=== PATIENT | female | born 1940 | race Caucasian/White ===

== ENCOUNTER 2018-04-13 03:25 | Emergency (ER) | payer OTHER ==
[2018-04-13 04:18] LABS: Urine RBC TNTC /HPF (NONE SEEN)
[2018-04-13 04:29] LABS: Urine Bacteria <20 /HPF (<20); Urine Culture Reflex Order NOT NEEDED
[2018-04-13 04:30] LABS: Urine Blood 3+ (NEG); Urine Glucose TRACE (NEG); Urine Protein 3+ (NEG); Urine Specific Gravity 1.015 (1.005-1.030); Urine pH >8.5 (5.0-7.0)
[2018-04-13 05:12] LABS: Absolute Lymphocytes (CBC) 1.5 K/uL (0.7-4.9); Absolute Monocytes 0.7 K/uL (0.1-1.3); Absolute Neutrophil 9.1 K/uL (1.8-8.0); Basophils % 0.6 % (0-1.3); Eosinophils % 1.1 % (0-4.4); Lymphocytes % 12.7 % (15.3-44.8); MCH 29.5 pg (27.0-35.0); MCV 88.1 fL (80-100); MPV 7.4 fL (7.6-11.3); Monocytes % 6.3 % (3.3-12.3); RBC Red Blood Cell Count 4.88 M/uL (3.86-4.86)
[2018-04-13 05:22] LABS: Protime INR 1.06
[2018-04-13 05:36] LABS: Albumin 4.1 g/dL (3.4-5.0); Bilirubin Direct 0.2 mg/dL (0-0.2); Bilirubin Total 0.9 mg/dL (0.2-1.0); Potassium 3.8 mmol/L (3.5-5.1); Protein, Total 7.5 g/dL (6.4-8.2)
--- NOTE | 2018-04-13 06:03 | ER ---
Nurse's Notes [facility] Name: Marimar Jansen Age: 77 yrs Sex: Female : 1940 Arrival Date: 04/13/2018 Time: 03:30 Bed 6 Private MD: Morena Melchor F Diagnosis: Hematuria, unspecified;Urinary tract infection, site not specified Presentation: 04/13 03:43 Presenting complaint: Patient states: Pt reports she started having bloody urine since ea 0000 this AM. 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 Denies Fever and burning with urination. Transition of care: patient was not received from another setting of care. Onset of symptoms was April 13, 2018. Risk Assessment: Do you want to hurt yourself or someone else? Patient reports no desire to harm self or others. Initial Sepsis Screen: Does the patient meet any 2 criteria? No. Patient's initial sepsis screen is negative. Does the patient have a suspected source of infection? Yes: Dysuria/Frequency/Urgency/UTI. Care prior to arrival: None. 03:43 Method Of Arrival: Ambulatory ea 03:43 Acuity: KAILA 4 ea Triage Assessment: 03:50 General: Appears in no apparent distress. Behavior is calm, cooperative, appropriate ea for age. Pain: Denies pain. Neuro: Level of Consciousness is awake, alert, obeys commands, Oriented to person, place, time, situation. Cardiovascular: Heart tones S1 S2 present Patient's skin is warm and dry. Respiratory: Airway is patent Respiratory effort is even, unlabored, Respiratory pattern is regular, symmetrical. : Parent/caregiver report the patient having bloody urine. Derm: Skin is pink, warm \T\ dry. Musculoskeletal: Circulation, motion, and sensation intact. Historical: - Home Meds: 04:32 atenolol 50 mg Oral tab 1 tab once daily [Active]; Myrbetriq 50 mg oral Tb24 1 tab once ea daily [Active]; Calcium Citrate Oral twice a day [Active]; glucosamine-chondroitin Oral daily [Active]; biotin 1,000 mcg oral chew daily [Active]; aspirin 81 mg Oral chew 1 tab once daily [Active]; magnesium oxide 400 mg Oral tab daily [Active]; pravastatin 40 mg Oral tab 1 tab once daily [Active]; losartan 100 mg Oral tab 1 tab once daily [Active]; latanoprost 0.005 % ophthalmic drop 1 drop once daily [Active]; - PMHx: 04:32 Hypertension; Hyperlipidemia; ea - PSHx: 04:32 LUMPECTOMY RIGHT BREAST; BACK SX; Tubal ligation; RIGHT FOOT SX; Bladder suspension; ea bunion surgery; - Immunization history:: Adult Immunizations up to date. - Social history:: Smoking status: Patient/guardian denies using tobacco. - Ebola Screening: : No symptoms or risks identified at this time. Screenin:51 Abuse screen: Denies threats or abuse. Nutritional screening: No deficits noted. ea Tuberculosis screening: No symptoms or risk factors identified. Fall Risk None identified. Assessment: 03:52 Reassessment: see triage assessment. ea 04:39 Reassessment: Patient appears in no apparent distress at this time. Patient and/or tl2 family updated on plan of care and expected duration. Pain level reassessed. Patient is alert, oriented x 3, equal unlabored respirations, skin warm/dry/pink. 05:38 Reassessment: Patient and/or family updated on plan of care and expected duration. Pain ea level reassessed. Patient is alert, oriented x 3, equal unlabored respirations, skin warm/dry/pink. 06:23 Reassessment: Patient and/or family updated on plan of care and expected duration. Pain ea level reassessed. Patient is alert, oriented x 3, equal unlabored respirations, skin warm/dry/pink. Discharge instructions given to patient, verbalized the understanding of instruction. 06:28 Reassessment: Patient appears in no apparent distress at this time. Patient and/or tl2 family updated on plan of care and expected duration. Pain level reassessed. Patient is alert, oriented x 3, equal unlabored respirations, skin warm/dry/pink. Pt verbalized understanding of discharge instructions, need for follow up and prescription usage. Vital Signs: 03:49 BP 193 / 99; Pulse 64; Resp 18; Temp 98; Pulse Ox 97% on R/A; Weight 68.04 kg; Height 5 ea ft. 2 in. (157.48 cm); Pain 0/10; 04:39 BP 183 / 84; Pulse 63; Resp 18; Pulse Ox 95% on R/A; tl2 05:30 BP 164 / 79; Pulse 65; Resp 18; Pulse Ox 98% on R/A; tl2 06:11 BP 167 / 74; Pulse 59; Resp 18; Pulse Ox 98% on R/A; tl2 03:49 Body Mass Index 27.44 (68.04 kg, 157.48 cm) ED Course: 03:30 Patient arrived in ED. am2 03:30 Morena Melchor MD is Private Physician. am2 03:35 Randy Lawson MD is Attending Physician. tw4 03:43 Sheila Dickens, RN is Primary Nurse. ea 03:46 UA MICROSCOPIC Sent. ds4 03:48 Triage completed. ea 03:51 Patient has correct armband on for positive identification. Bed in low position. Call ea light in reach. 03:52 Arm band placed on right wrist. Patient placed in an exam room, on a stretcher, on ea pulse oximetry. 04:39 Inserted saline lock: 20 gauge in left antecubital area, using aseptic technique. Blood tl2 collected. placed by adolfo Lowery. 04:40 Basic Metabolic Panel Sent. ds4 04:40 Ptt, Activated Sent. ds4 04:40 PT-INR Sent. ds4 04:40 Basic Metabolic Panel Sent. ds4 04:40 CBC with Diff Sent. ds4 04:40 Creatinine for Radiology Sent. ds4 04:40 Hepatic Function Sent. ds4 04:40 Lipase Sent. ds4 04:41 Urine Dipstick--Ancillary (enter results) Sent. ds4 06:02 Morena Melchor MD is Referral Physician. tw4 06:23 No provider procedures requiring assistance completed. IV discontinued, intact, ea bleeding controlled, No redness/swelling at site. Pressure dressing applied. Administered Medications: No medications were administered Outcome: 06:03 Discharge ordered by . tw4 06:24 Discharged to home ambulatory. ea 06:24 Condition: improved 06:24 Discharge instructions given to patient, Instructed on discharge instructions, follow up and referral plans. medication usage, Demonstrated understanding of instructions, follow-up care, medications, Prescriptions given X 1. 06:28 Patient left the ED. tl2 Signatures: Sebastián Bassett ds4 Billie Blanco RN RN tl2 Lyric Swenson am2 Dickens, Sheila, RN RN ea Renny, Randy, MD MD tw4
--- NOTE | 2018-04-13 06:03 | EDPHYS ---
Physician Documentation [facility] Name: Marimar Jansen Age: 77 yrs Sex: Female : 1940 Arrival Date: 04/13/2018 Time: 03:30 Bed 6 Private MD: Morena Melchor F ED Physician Randy Lawson HPI: 04/13 05:53 This 77 yrs old Female presents to ER via Ambulatory with complaints of tw4 Urinary Problem - bleeding. 05:53 The patient presents with urinary symptoms, hematuria. tw4 Historical: - Home Meds: 04:32 atenolol 50 mg Oral tab 1 tab once daily [Active]; Myrbetriq 50 mg oral Tb24 1 tab once ea daily [Active]; Calcium Citrate Oral twice a day [Active]; glucosamine-chondroitin Oral daily [Active]; biotin 1,000 mcg oral chew daily [Active]; aspirin 81 mg Oral chew 1 tab once daily [Active]; magnesium oxide 400 mg Oral tab daily [Active]; pravastatin 40 mg Oral tab 1 tab once daily [Active]; losartan 100 mg Oral tab 1 tab once daily [Active]; latanoprost 0.005 % ophthalmic drop 1 drop once daily [Active]; - PMHx: 04:32 Hypertension; Hyperlipidemia; ea - PSHx: 04:32 LUMPECTOMY RIGHT BREAST; BACK SX; Tubal ligation; RIGHT FOOT SX; Bladder suspension; ea bunion surgery; - Immunization history:: Adult Immunizations up to date. - Social history:: Smoking status: Patient/guardian denies using tobacco. - Ebola Screening: : No symptoms or risks identified at this time. ROS: 05:57 Positive for hematuria. tw4 05:57 Constitutional: Negative for fever, chills, and weight loss, Eyes: Negative for injury, pain, redness, and discharge, Cardiovascular: Negative for chest pain, palpitations, and edema, Respiratory: Negative for shortness of breath, cough, wheezing, and pleuritic chest pain, Abdomen/GI: Negative for abdominal pain, nausea, vomiting, diarrhea, and constipation, Back: Negative for injury and pain, MS/Extremity: Negative for injury and deformity. 05:57 : Positive for hematuria. Exam: 05:57 Constitutional: This is a well developed, well nourished patient who is awake, alert, tw4 and in no acute distress. Head/Face: Normocephalic, atraumatic. Chest/axilla: Normal chest wall appearance and motion. Nontender with no deformity. No lesions are appreciated. Cardiovascular: Regular rate and rhythm with a normal S1 and S2. No gallops, murmurs, or rubs. Normal PMI, no JVD. No pulse deficits. Respiratory: Lungs have equal breath sounds bilaterally, clear to auscultation and percussion. No rales, rhonchi or wheezes noted. No increased work of breathing, no retractions or nasal flaring. Abdomen/GI: Soft, non-tender, with normal bowel sounds. No distension or tympany. No guarding or rebound. No evidence of tenderness throughout. Back: No spinal tenderness. No costovertebral tenderness. Full range of motion. MS/ Extremity: Pulses equal, no cyanosis. Neurovascular intact. Full, normal range of motion. Neuro: Awake and alert, GCS 15, oriented to person, place, time, and situation. Cranial nerves II-XII grossly intact. Motor strength 5/5 in all extremities. Sensory grossly intact. Cerebellar exam normal. Normal gait. Vital Signs: 03:49 BP 193 / 99; Pulse 64; Resp 18; Temp 98; Pulse Ox 97% on R/A; Weight 68.04 kg; Height 5 ea ft. 2 in. (157.48 cm); Pain 0/10; 04:39 BP 183 / 84; Pulse 63; Resp 18; Pulse Ox 95% on R/A; tl2 05:30 BP 164 / 79; Pulse 65; Resp 18; Pulse Ox 98% on R/A; tl2 06:11 BP 167 / 74; Pulse 59; Resp 18; Pulse Ox 98% on R/A; tl2 03:49 Body Mass Index 27.44 (68.04 kg, 157.48 cm) ea MDM: 03:35 Patient medically screened. tw4 05:59 Differential diagnosis: kidney stone, malignancy, urinary tract infection. Data tw4 reviewed: vital signs, nurses notes. Data interpreted: Pulse oximetry: Interpretation: normal. Counseling: I had a detailed discussion with the patient and/or guardian regarding: the historical points, exam findings, and any diagnostic results supporting the discharge/admit diagnosis, lab results. Special discussion: I discussed with the patient/guardian in detail that at this point there is no indication for admission to the hospital. It is understood, however, that if the symptoms persist or worsen the patient needs to return immediately for re-evaluation. 04/13 03:36 Order name: UA MICROSCOPIC; Complete Time: 05:10 04/13 05:10 Interpretation: Normal except: URBC TNTC. 04/13 03:46 Order name: Urine Dipstick--Ancillary (enter results); Complete Time: 05:10 4 04/13 05:10 Interpretation: Normal except: UKET 1+; UESTR 3+; UPROT 3+; UBLD 3+. 04/13 04:15 Order name: Basic Metabolic Panel 04/13 04:15 Order name: CBC with Diff; Complete Time: 05:18 04/13 05:18 Interpretation: Normal except: WBC 11.4; RBC 4.88; LYM% 12.7; JAZMINE% 79.3; MPV 7.4; NEUT tw4 A 9.1. 04/13 04:15 Order name: Creatinine for Radiology; Complete Time: 05:53 04/13 04:15 Order name: Hepatic Function; Complete Time: 05:53 04/13 04:15 Order name: Lipase; Complete Time: 05:53 04/13 04:15 Order name: IV Saline Lock; Complete Time: 04:39 04/13 04:15 Order name: Labs collected and sent; Complete Time: 04:39 04/13 04:15 Order name: PT-INR; Complete Time: 05:53 04/13 04:15 Order name: Ptt, Activated; Complete Time: 05:53 04/13 04:15 Order name: Basic Metabolic Panel; Complete Time: 05:53 EDMS Administered Medications: No medications were administered Disposition: 04/13/18 06:03 Discharged to Home. Impression: Hematuria, unspecified, Urinary tract infection, site not specified. - Condition is Stable. - Discharge Instructions: Hematuria, Adult, Urinary Tract Infection, Adult, Erus-pt-Ccmb. - Prescriptions for Macrobid 100 mg Oral Capsule - take 1 capsule by ORAL route every 12 hours for 10 days; 20 capsule. - Medication Reconciliation Form, Thank You Letter, Antibiotic Education, Prescription Opioid Use form. - Follow up: Morena Melchor MD; When: Upon discharge from the Emergency Department; Reason: Wound Recheck, Further diagnostic work-up, Recheck today's complaints, Continuance of care. - Problem is new. - Symptoms have improved. Signatures: Dispatcher [employer] EDBillie Cook RN RN tl2 Sheila Dickens RN RN Randy Candelario MD MD tw4 Corrections: (The following items were deleted from the chart) 06:28 06:03 04/13/2018 06:03 Discharged to Home. Impression: Hematuria, unspecified; Urinary tl2 tract infection, site not specified. Condition is Stable. Forms are Medication Reconciliation Form, Thank You Letter, Antibiotic Education, Prescription Opioid Use. Follow up: Morena Melchor; When: Upon discharge from the Emergency Department; Reason: Wound Recheck, Further diagnostic work-up, Recheck today's complaints, Continuance of care. Problem is new. Symptoms have improved. tw4
== END 2018-04-13 06:28 | disposition home or self-care (01) ==
LOC: ER 03:25
DX: N39.0 Urinary tract infection, site not specified (principal); I10 Essential (primary) hypertension; E78.5 Hyperlipidemia, unspecified; Z79.82 Long term (current) use of aspirin
CPT/HCPCS: 36415; 80048; 80076; 81003; 81015; 83690; 85025; 85610; 85730; 99284

== ENCOUNTER 2018-05-06 08:54 | Emergency (ER) | payer OTHER ==
--- NOTE | 2018-05-06 10:07 | RAD REPORT ---
EXAM DESCRIPTION: RAD - Knee Right 3 View - 05/06/2018 9:34 am CLINICAL HISTORY: PAIN Fall COMPARISON: No comparisons FINDINGS: Soft tissue swelling is seen anterior to the patella. No fracture or dislocation is seen. No suprapatellar joint effusion is seen.
--- NOTE | 2018-05-06 10:10 | RAD REPORT ---
EXAM DESCRIPTION: RAD - Wrist Left 3 View - 05/06/2018 9:34 am CLINICAL HISTORY: PAIN Fall COMPARISON: No comparisons FINDINGS: Degenerative changes are present involving the first carpometacarpal joint as well as the radiocarpal joint. No acute fracture is seen. Soft tissue swelling seen along the dorsum of the carp al bones.
--- NOTE | 2018-05-06 10:12 | RAD REPORT ---
EXAM DESCRIPTION: RAD - Wrist Right 3 View - 05/06/2018 9:34 am CLINICAL HISTORY: PAIN Pain COMPARISON: No comparisons FINDINGS: No acute fracture or dislocation is seen.
--- NOTE | 2018-05-06 10:18 | ER ---
Nurse's Notes [facility] Name: Marimar Jansen Age: 77 yrs Sex: Female : 1940 Arrival Date: 05/06/2018 Time: 08:56 Bed 18 Private MD: Morena Melchor F Diagnosis: Contusion of right knee;Contusion of right wrist;Contusion of left wrist Presentation: 05/06 09:05 Presenting complaint: Patient states: was coming here at the hospital for my pre op hj appointment when i tripped and fell on the doorstep and hurt my R hand, L hand, R knee; denies hitting head and LOC;. Transition of care: patient was not received from another setting of care. Onset of symptoms was May 06, 2018. Risk Assessment: Do you want to hurt yourself or someone else? Patient reports no desire to harm self or others. Initial Sepsis Screen: Does the patient meet any 2 criteria? No. Patient's initial sepsis screen is negative. Does the patient have a suspected source of infection? No. Patient's initial sepsis screen is negative. Care prior to arrival: None. 09:05 Method Of Arrival: Ambulatory hj 09:05 Acuity: KAILA 4 hj 09:05 Mechanism of Injury: Fall from standing position. Trauma event details: Injury occurred hj in the [facility], Injury occurred: in a public building. Injury occurred: May 06, 2018 Injury occurred at: 08:45. Triage Assessment: 09:12 General: Appears in no apparent distress. uncomfortable, Behavior is calm, cooperative, hj appropriate for age. Pain: Complains of pain in R hand, L hand, R knee. Trauma Activation: Not Applicable Physician: ED Physician; Name: ; Notified At: ; Arrived At: Physician: General Surgeon; Name: ; Notified At: ; Arrived At: Physician: Radiology; Name: ; Notified At: ; Arrived At: Physician: Respiratory; Name: ; Notified At: ; Arrived At: Physician: Lab; Name: ; Notified At: ; Arrived At: Historical: - Allergies: 09:09 No Known Allergies; hj - Home Meds: 09:09 aspirin 81 mg Oral chew 1 tab once daily [Active]; atenolol 50 mg Oral tab 1 tab once hj daily [Active]; biotin 1,000 mcg Oral chew daily [Active]; Calcium Citrate Oral twice a day [Active]; glucosamine-chondroitin Oral daily [Active]; latanoprost 0.005 % ophthalmic drop 1 drop once daily [Active]; losartan 100 mg Oral tab 1 tab once daily [Active]; magnesium oxide 400 mg Oral tab daily [Active]; Myrbetriq 50 mg Oral Tb24 1 tab once daily [Active]; pravastatin 40 mg Oral tab 1 tab once daily [Active]; - PMHx: 09:09 Hyperlipidemia; Hypertension; hj - PSHx: 09:09 LUMPECTOMY RIGHT BREAST; BACK SX; Tubal ligation; RIGHT FOOT SX; Bladder suspension; hj bunion surgery; - Immunization history:: Adult Immunizations up to date. - Social history:: Smoking status: Patient/guardian denies using tobacco, Patient/guardian denies using alcohol. - Immunization history: Last tetanus immunization: - up to date. - Family history:: not pertinent. - Ebola Screening: : Patient negative for fever greater than or equal to 101.5 degrees Fahrenheit, and additional compatible Ebola Virus Disease symptoms Patient denies exposure to infectious person Patient denies travel to an Ebola-affected area in the 21 days before illness onset. - Hospitalizations: : No recent hospitalization is reported. Screenin:10 Abuse screen: Denies threats or abuse. Denies injuries from another. Nutritional hj screening: No deficits noted. Tuberculosis screening: No symptoms or risk factors identified. Fall Risk None identified. Primary Survey: 09:05 A: Airway: patent, No supplemental oxygen in use on arrival. Oral cavity: clear, gag hj reflex present, Trachea midline. Breathing/Chest: Respiratory pattern: regular, Respiratory effort: spontaneous, unlabored, Breath sounds: clear, Chest inspection: symmetrical rise and fall of the chest. Circulation: Cardiac rhythm: sinus rhythm Heart tones present. Pulses: palpable right radial artery and left radial artery. Skin color: pink, Skin temperature: warm, dry. Disability Alert. 09:12 Reassessment Airway Airway Patent Oxygen No O2 Oral cavity Clear +Gag reflex Trachea hj Midline Breathing/Chest Respiratory pattern Regular Respiratory effort Spontaneous Unlabored Breath sounds Clear Chest inspection Symmetrical Circulation Heart rhythm Sinus rhythm Heart tones Present Pulses Palpable Color [place] Temperature Warm Dry Disability Alert. Assessment: 09:14 General: Appears in no apparent distress. uncomfortable, Behavior is calm, cooperative, hj appropriate for age. Pain: Complains of pain in R hand, L hand, R knee. Neuro: Level of Consciousness is awake, alert, obeys commands, Oriented to person, place, time, situation, Appropriate for age. Cardiovascular: Capillary refill < 3 seconds Patient's skin is warm and dry. Respiratory: Airway is patent Respiratory effort is even, unlabored, Respiratory pattern is regular, symmetrical. GI: No signs and/or symptoms were reported involving the gastrointestinal system. : No signs and/or symptoms were reported regarding the genitourinary system. EENT: No signs and/or symptoms were reported regarding the EENT system. Derm: No signs and/or symptoms reported regarding the dermatologic system. Musculoskeletal: Circulation, motion, and sensation intact. Range of motion: intact in all extremities, Reports pain in R hand, L hand, R knee. Vital Signs: 09:09 BP 161 / 82; Pulse 87; Resp 18; Temp 98.1(TE); Pulse Ox 97% on R/A; Weight 68.04 kg; hj Height 5 ft. 2 in. (157.48 cm); Pain 5/10; 09:09 Body Mass Index 27.44 (68.04 kg, 157.48 cm) hj [place] Coma Score: 09:11 Eye Response: spontaneous(4). Verbal Response: oriented(5). Motor Response: obeys commands(6). Total: 15. Trauma Score (Adult): 09:11 Eye Response: spontaneous(1); Verbal Response: oriented(1); Motor Response: obeys commands(2); Systolic BP: > 89 mm Hg(4); Respiratory Rate: 10 to 29 per min(4); [place] Score: 15; Trauma Score: 12 ED Course: 08:56 Patient arrived in ED. mr 08:57 Morena Melchor MD is Private Physician. mr 09:00 Janes Taylor MD is Attending Physician. rn 09:04 Adama Gonzalez RN is Primary Nurse. hj 09:07 Triage completed. hj 09:13 Arm band placed on right wrist. hj 09:14 Patient has correct armband on for positive identification. Bed in low position. Call hj light in reach. Side rails up X 1. 09:14 Patient maintains SpO2 saturation greater than 95% on room air. hj 09:14 Thermoregulation: warm blanket given to patient. hj 09:35 XRAY Knee RIGHT 3 view In Process Unspecified. EDMS 09:35 XRAY Wrist LEFT 3 view In Process Unspecified. EDMS 09:35 XRAY Wrist RIGHT 3 view In Process Unspecified. EDMS 10:17 Morena Melchor MD is Referral Physician. rn 10:29 No provider procedures requiring assistance completed. Patient did not have IV access hj during this emergency room visit. Administered Medications: No medications were administered Intake: 10:30 PO: 0ml; Total: 0ml. hj Output: 10:30 Urine: 0ml; Total: 0ml. hj Outcome: 10:17 Discharge ordered by MD. rn 10:29 Discharged to home via wheelchair, wheeled to pre op nurse area for patient's appt; hj 10:29 Condition: stable 10:29 Discharge instructions given to patient, Instructed on discharge instructions, follow up and referral plans. Demonstrated understanding of instructions, follow-up care. 10:30 Patient's length of stay was not longer than 2 hours. hj 10:30 Patient left the ED. hj Signatures: Dispatcher [employer] EDNM Rosmery Yang Roman, MD MD rn Joaquin, Henry, RN RN hj
--- NOTE | 2018-05-06 10:18 | EDPHYS ---
Physician Documentation [facility] Name: Marimar Jansen Age: 77 yrs Sex: Female : 1940 Arrival Date: 05/06/2018 Time: 08:56 Bed 18 Private MD: Morena Melchor F ED Physician Janes Taylor HPI: 05/06 09:05 This 77 yrs old Female presents to ER via Unassigned with complaints of Fall rn Injury. 09:05 Details of fall: The patient fell from an upright position, while walking. Onset: The rn symptoms/episode began/occurred just prior to arrival. Associated injuries: The patient sustained both wrists and knee. Severity of symptoms: At their worst the symptoms were mild, in the emergency department the symptoms are unchanged. The patient has not experienced similar symptoms in the past. REports fall from standing, tripped, hit right wrists and right knee, is ambulatory, doesn't feel like anything is broken, told to come in for evaluation. Stopped her aspirin a few days ago, was here for pre-op stuff. . Historical: - Allergies: 09:09 No Known Allergies; hj - Home Meds: 09:09 aspirin 81 mg Oral chew 1 tab once daily [Active]; atenolol 50 mg Oral tab 1 tab once hj daily [Active]; biotin 1,000 mcg Oral chew daily [Active]; Calcium Citrate Oral twice a day [Active]; glucosamine-chondroitin Oral daily [Active]; latanoprost 0.005 % ophthalmic drop 1 drop once daily [Active]; losartan 100 mg Oral tab 1 tab once daily [Active]; magnesium oxide 400 mg Oral tab daily [Active]; Myrbetriq 50 mg Oral Tb24 1 tab once daily [Active]; pravastatin 40 mg Oral tab 1 tab once daily [Active]; - PMHx: 09:09 Hyperlipidemia; Hypertension; hj - PSHx: 09:09 LUMPECTOMY RIGHT BREAST; BACK SX; Tubal ligation; RIGHT FOOT SX; Bladder suspension; hj bunion surgery; - Immunization history:: Adult Immunizations up to date. - Social history:: Smoking status: Patient/guardian denies using tobacco, Patient/guardian denies using alcohol. - Immunization history: Last tetanus immunization: - up to date. - Family history:: not pertinent. - Ebola Screening: : Patient negative for fever greater than or equal to 101.5 degrees Fahrenheit, and additional compatible Ebola Virus Disease symptoms Patient denies exposure to infectious person Patient denies travel to an Ebola-affected area in the 21 days before illness onset. - Hospitalizations: : No recent hospitalization is reported. ROS: 09:05 Constitutional: Negative for fever, chills, and weight loss, Eyes: Negative for injury, rn pain, redness, and discharge, Neck: Negative for injury, pain, and swelling, Cardiovascular: Negative for chest pain, palpitations, and edema, Respiratory: Negative for shortness of breath, cough, wheezing, and pleuritic chest pain, Abdomen/GI: Negative for abdominal pain, nausea, vomiting, diarrhea, and constipation, Back: Negative for injury and pain, MS/Extremity: + right knee and both wrist pain Skin: + bruising to wrists Neuro: Negative for headache, weakness, numbness, tingling, and seizure. Exam: 09:05 Constitutional: This is a well developed, well nourished patient who is awake, alert, rn and in no acute distress. Head/Face: Normocephalic, atraumatic. Eyes: Pupils equal round and reactive to light, extra-ocular motions intact. Lids and lashes normal. Conjunctiva and sclera are non-icteric and not injected. Cornea within normal limits. Periorbital areas with no swelling, redness, or edema. Neck: NO spinal tenderness MS/ Extremity: Pulses equal, no cyanosis. Neurovascular intact. Full, normal range of motion. Equal circumference. Small abrasion and ecchymosis to right anterior knee and bilateral wrists, no deformity. Neuro: Awake and alert, GCS 15, oriented to person, place, time, and situation. Cranial nerves II-XII grossly intact. Motor strength 5/5 in all extremities. Sensory grossly intact. Cerebellar exam normal. Normal gait. Vital Signs: 09:09 BP 161 / 82; Pulse 87; Resp 18; Temp 98.1(TE); Pulse Ox 97% on R/A; Weight 68.04 kg; hj Height 5 ft. 2 in. (157.48 cm); Pain 5/10; 09:09 Body Mass Index 27.44 (68.04 kg, 157.48 cm) Roberto Coma Score: 09:11 Eye Response: spontaneous(4). Verbal Response: oriented(5). Motor Response: obeys hj commands(6). Total: 15. Trauma Score (Adult): 09:11 Eye Response: spontaneous(1); Verbal Response: oriented(1); Motor Response: obeys hj commands(2); Systolic BP: > 89 mm Hg(4); Respiratory Rate: 10 to 29 per min(4); [place] Score: 15; Trauma Score: 12 MDM: 09:00 Patient medically screened. rn 10:16 Differential diagnosis: abrasion, contusion, fracture, sprain, strain. Data reviewed: rn vital signs, nurses notes, radiologic studies, plain films, and as a result, I will discharge patient. Counseling: I had a detailed discussion with the patient and/or guardian regarding: the historical points, exam findings, and any diagnostic results supporting the discharge/admit diagnosis, radiology results, the need for outpatient follow up, to return to the emergency department if symptoms worsen or persist or if there are any questions or concerns that arise at home. Special discussion: I discussed with the patient/guardian in detail that at this point there is no indication for admission to the hospital. It is understood, however, that if the symptoms persist or worsen the patient needs to return immediately for re-evaluation. 05/06 09:05 Order name: XRAY Knee RIGHT 3 view; Complete Time: 10:08 rn 05/06 09:05 Order name: XRAY Wrist LEFT 3 view; Complete Time: 10:16 rn 05/06 09:05 Order name: XRAY Wrist RIGHT 3 view; Complete Time: 10:16 rn Administered Medications: No medications were administered Disposition: 05/06/18 10:17 Discharged to Home. Impression: Contusion of right knee, Contusion of right wrist, Contusion of left wrist. - Condition is Stable. - Discharge Instructions: Contusion. - Medication Reconciliation Form, Thank You Letter, Antibiotic Education, Prescription Opioid Use form. - Follow up: Morena Melchor MD; When: As needed; Reason: Recheck today's complaints, Re-evaluation by your physician. - Problem is new. - Symptoms have improved. Signatures: Dispatcher [employer] EDMS Janes Taylor MD MD rn Joaquin, Henry, RN RN hj Corrections: (The following items were deleted from the chart) 10:30 10:17 05/06/2018 10:17 Discharged to Home. Impression: Contusion of right knee; hj Contusion of right wrist; Contusion of left wrist. Condition is Stable. Forms are Medication Reconciliation Form, Thank You Letter, Antibiotic Education, Prescription Opioid Use. Follow up: Morena Melchor; When: As needed; Reason: Recheck today's complaints, Re-evaluation by your physician. Problem is new. Symptoms have improved. rn
== END 2018-05-06 10:30 | disposition home or self-care (01) ==
LOC: ER 08:54
DX: S80.01XA Contusion of right knee, initial encounter (principal); S60.212A Contusion of left wrist, initial encounter; S60.211A Contusion of right wrist, initial encounter; W01.0XXA Fall on same level from slipping, tripping and stumbling without subsequent striking against object, initial encounter; Y93.01 Activity, walking, marching and hiking; Y92.9 Unspecified place or not applicable; Z79.82 Long term (current) use of aspirin; I10 Essential (primary) hypertension; E78.5 Hyperlipidemia, unspecified
CPT/HCPCS: 99284

== ENCOUNTER 2018-06-24 05:56 | Day surgery (SDC) | payer OTHER ==
[2018-06-24] MEDS ORDERED: Ringers Lactate 1,000 ML IV ONE (06:14)
[2018-06-24] MEDS ORDERED: LIDOCAINE 1% MPF 5 ML VIAL ONE (06:17)
[2018-06-24] MEDS ORDERED: LIDOCAINE 1% W/EPI 1:100,000 MDV 50 ML VIAL ONE (07:09)
[2018-06-24] MEDS ORDERED: NA CHLORIDE 0.9% 1,000 ML ONE (07:10)
[2018-06-24] MEDS ORDERED: MIDAZOLAM HCL 2 MG/2 ML INJ ONE (07:31)
[2018-06-24] MEDS ORDERED: FENTANYL CITR 100 MCG/2 ML ONE (07:31)
[2018-06-24] MEDS ORDERED: PROPOFOL 200 MG/20 ML VIAL IV ONE (07:31)
[2018-06-24] MEDS ORDERED: LIDOCAINE 2% MPF 5 ML VIAL ONE (07:31)
--- NOTE | 2018-06-24 17:37 | OP ---
Surgeon: Carola Fontana MD Barrel Raiser Helper: None. Preoperative Diagnosis: Postmenopausal bleeding. Postoperative Diagnosis: Postmenopausal bleeding. Procedures: Hysteroscopy, dilation and curettage. Anesthesia: MAC. Specimens: Very scant endometrial curettings. Findings: Endometrial cavity empty. Cervix narrow. Very scant curettings were obtained. Complications: None. Drains: None. Condition: Stable. Ebl: Minimal. Indications For Procedure: The patient is a 77-year-old with possible either hematuria or vaginal bl eeding, presented to me. She is status post vaginal prolapse repair with uterine preservation. So s he was referred to urologist for hematuria workup and I wanted to evaluate her uterine cavity to rule out any atypia or malignancy. She had a transvaginal ultrasound and then she was consented to come to the OR for this procedure. Description Of Procedure: After informed consent was verified, she was taken back to the OR, placed in a supine fashion on the operating table. After MAC was given, she was placed in dorsal lithotomy position. Speculum placed to expose the cervix, injected the anterior lip with 1% lidocaine mixed wi th 1:100,000 epinephrine, 5 cc was injected. Allis clamps x2 were placed, prep with Betadine x3 was done. Speculum used to expose the external os and a SlimLine hysteroscope was used to enter the cerv ical canal. After traversing the cervical canal under direct vision, uterine cavity was entered. Th e cavity was empty, extremely thin endometrium. Both tubal ostia were visualized. The scope was rem katharine. Endometrial curettings were performed, which were scant. There was some fluid in the canal th at was drained and then specimen handed off for permanent pathology. All the instruments removed. I nstrument, needle, and sponge counts were done and were correct at the end of the case. She was dawit ramón from anesthesia in the OR and taken to PACU in stable condition. She will follow up with me in 1 week for followup. PORSHA/STACEY Voice ID: [id number] Report ID: [id number]
== END 2018-06-24 09:05 | disposition home or self-care (01) ==
LOC: OR 05:56
PROVIDERS: ATTEND Obstetrics & Gynecology
PROC: 0UJD8ZZ Inspection of Uterus and Cervix, Via Natural or Artificial Opening Endoscopic (ICD-10-PCS; 2018-06-24)
PROC: 0UDB7ZX Extraction of Endometrium, Via Natural or Artificial Opening, Diagnostic (ICD-10-PCS; principal; 2018-06-24 07:00)
DX: N95.0 Postmenopausal bleeding (principal); I10 Essential (primary) hypertension; E78.00 Pure hypercholesterolemia, unspecified; N32.81 Overactive bladder; M85.80 Other specified disorders of bone density and structure, unspecified site; Z79.82 Long term (current) use of aspirin; Z80.3 Family history of malignant neoplasm of breast; Z80.0 Family history of malignant neoplasm of digestive organs; Z82.49 Family history of ischemic heart disease and other diseases of the circulatory system
CPT/HCPCS: 58558; 88305; J2250; J2704; J3010; J7030